=== PATIENT | male | born 1985 | race Caucasian/White ===

== ENCOUNTER 2021-04-02 23:42 | Emergency (ER) | payer OTHER ==
[~2021-04-02] VITALS: Ht 190.5 cm; Wt 114.0 kg
[2021-04-03] MEDS ORDERED: ONDANSETRON 2MG/ML, 2ML IVPush ONE (00:30)
[2021-04-03] MEDS ORDERED: SODIUM CHLORIDE 0.9% 1,000ML IVBOLUS ONE (00:30)
--- NOTE | 2021-04-03 00:37 | NUR ---
PT SAYS HE'S GOT ABDOMINAL PAIN, STARTED THIS AM, BUT GOT WORST AFTER HAVING DINNER TONIGHT, IT GOT PROGRESSIVELY WORST. HAS HAPPENED BEFORE. SAYS HE FEELS LIKE IT'S HIS GALL BLADDER, HE'S DEALT WITH IT BEFORE. PT HAS HAD EMESIS, AND STOOL AND IT DIDN'T HELP. PAIN IS ON THE RIGHT UPPER ABDOMEN RADIATES TO LEFT UPPER ABDOMEN.
[2021-04-03] MEDS ORDERED: ONDANSETRON 2MG/ML, 2ML ONE (00:49)
[2021-04-03] MEDS ORDERED: MORPHINE SULFATE 4 MG/ML, 1ML ONE ×2 (00:50→03:31)
--- NOTE | 2021-04-03 01:00 | NUR ---
pt to us
[2021-04-03 01:01] LABS: BASOPHILS % (AUTO) 1 % (0-1); EOSINOPHILS % (AUTO) 1 % (1-7); LYMPHOCYTES % (AUTO) 7 % (22-44); MEAN CORPUSCULAR HEMOGLOBIN 28.9 pg (27.5-34.5); MEAN CORPUSCULAR HGB CONC 34.5 g/dL (33.2-36.2); MEAN PLATELET VOLUME 9.2 fL (7.4-10.4); MONOCYTES % (AUTO) 4 % (2-9); NEUTROPHILS % (AUTO) 87 % (42-75); PLATELET COUNT 194 x10^3/uL (130-400); RED BLOOD COUNT 5.25 x10^6/uL (4.38-5.82); RED CELL DISTRIBUTION WIDTH 13.5 % (9.4-14.8)
[2021-04-03 01:11] LABS: ALANINE AMINOTRANSFERASE 50 U/L (12-78); ANION GAP 5 mmol/L (5-15); CHLORIDE 107 mmol/L (98-107); CREATININE 1.09 mg/dL (0.7-1.3)
[2021-04-03 01:14] LABS: ALKALINE PHOSPHATASE 54 U/L (45-117); BILIRUBIN,TOTAL 1.7 mg/dL (0.2-1.0)
[2021-04-03] MEDS: MORPHINE SULFATE 4 MG/ML, 1ML IVPush PRN ×2 (01:30→03:36)
--- NOTE | 2021-04-03 01:41 | NUR ---
pt back from us and medicated. denies needs at this time.
--- NOTE | 2021-04-03 02:08 | NUR ---
pt resting on gurney, denies needs at this time.
[2021-04-03 03:03] VITALS: BP 133/81
--- NOTE | 2021-04-03 03:04 | NUR ---
pt resting on gurney, denies needs at this time.
--- NOTE | 2021-04-03 04:11 | NUR ---
called report to CAMILA Carranza at [facility]. pt is going to go to room [facility] [address]. pt will be transported by [facility]
--- NOTE | 2021-04-03 04:54 | NUR ---
TERRIE came and picked up pt to be transported to [facility] on [facility] [address]
== END 2021-04-03 04:59 | disposition short-term general hospital (02) ==
LOC: ED 04-03 03:25
DX: K80.70 Calculus of gallbladder and bile duct without cholecystitis without obstruction (principal); R10.11 Right upper quadrant pain
CPT/HCPCS: 36415; 76700; 80053; 83690; 85025; 96361; 96374; 96375; 96376; 99285; J2270; J2405; J7030